=== PATIENT | male | born 2000 | race Hispanic/Latino ===

== ENCOUNTER → 2018-10-18 15:11 | Outpatient (CLI) | payer OTHER, MEDICAID, SELFPAY ==
--- NOTE | 2018-10-18 15:13 | DI.MRI.S_ITS ---
PROCEDURE: MR KNEE LT WO CON INDICATIONS: left knee pain, suspect meniscal injury TECHNIQUE: Noncontrast sagittal PD fast spin echo and T2 fast spin echo with fat saturation, sagittal 3-D FLASH with fat saturation; coronal T1 spin echo and PD fast spin echo with fat saturation, and axial PD fast spin echo with fat saturation through the knee. COMPARISON: None. FINDINGS: Image quality: Excellent. Menisci: The medial and lateral menisci demonstrate normal morphology and internal signal. The meniscal root ligaments appear intact. Cruciate ligaments: The anterior and posterior cruciate ligaments appear intact. Medial structures: The medial collateral ligament appears intact. Medial collateral ligament is thickened with increased internal signal compatible with grade 1 sprain. The posterior oblique ligament, semimembranosus tendon insertions, oblique popliteal ligament, and meniscocapsular junction appear intact. Visualized portions of the pes anserinus tendons appear normal. No abnormal bursal fluid. Lateral structures: The lateral collateral ligament, long and short heads of the biceps femoris tendon appear intact. The popliteus tendon appears normal; the popliteofibular ligament appears intact. The posterosuperior and anteroinferior popliteomeniscal fascicles appear intact. The arcuate and fabellofibular ligaments appear intact, on either side of the lateral inferior geniculate artery. Iliotibial band appears normal. Anterior structures: The quadriceps and patellar tendons appear intact. There is edema extending along the anterior margin of the patella likely representing stress injury. No patellar stress fracture. Patellar alignment is normal. No femoral trochlear dysplasia or ventral trochlear prominence. No edema in the infrapatellar fat pad. Bones and cartilage: No bone marrow contusions or fractures. The cartilage of the medial and lateral femorotibial compartments, as well as the patellofemoral compartment, appears normal in thickness. Joint space: There is physiologic knee joint fluid. No Cedeno's cyst. Normal appearing synovial plicae are incidentally noted. IMPRESSION: 1. Medial collateral ligament grade 1 sprain. 2. No evidence of meniscal tear. Dictated by: Andria Maldonado MD, PhD on 10/18/2018 at 17:33 Approved by: Andria Maldonado MD, PhD on 10/18/2018 at 20:54
== END ==
PROVIDERS: Family Provider Family Medicine; PCP Family Medicine; Visit Provider Registered Nurse
DX: M25.562 Pain in left knee (principal); S83.412A Sprain of medial collateral ligament of left knee, initial encounter
CPT/HCPCS: 73721

== ENCOUNTER → 2019-02-08 11:21 | Outpatient (CLI) | payer OTHER, MEDICAID, SELFPAY ==
[2019-02-08 12:09] LABS: Influenza A and B by PCR Rapid Negative (Negative)
== END ==
PROVIDERS: Family Provider Family Medicine; PCP Family Medicine; Visit Provider Family Medicine
DX: J06.9 Acute upper respiratory infection, unspecified (principal)
CPT/HCPCS: 87400; 87502

== ENCOUNTER 2022-11-15 15:56 | Emergency (ER) | payer OTHER, MEDICAID, SELFPAY | END 2022-11-15 16:40 | disposition left against medical advice (07) | PROVIDERS: Emergency Provider Emergency Medicine; Family Provider Family Medicine; PCP Family Medicine | DX: R10.9 Unspecified abdominal pain (principal) ==

== ENCOUNTER 2023-06-01 12:25 | Emergency (ER) | payer SELFPAY ==
[2023-06-01] VITALS (23 sets, daily range): BP systolic 98–119; BP diastolic 55–83; PULSE 80–98; RESP 13–35; TEMP 37.2; O2SAT 93–99; BMI 35.1
[2023-06-01] MEDS: HYDROMORPHONE 1 MG INJ IV (12:37)
[2023-06-01] MEDS: ONDANSETRON 4 MG/2 ML INJ IV (12:37)
--- NOTE | 2023-06-01 12:38 | DI.CT.S_ITS ---
PROCEDURE: CT KIDNEY URETER BLADDER (KUB) INDICATIONS: RLQ abd pain TECHNIQUE: Axial sections were acquired from the lung bases to the pubic symphysis. Coronal and sagittal reformats were performed. For radiation dose reduction, the following was used: automated exposure control, adjustment of mA and/or kV according to patient size. COMPARISON: [facility], CT, KIDNEY/ URETER/BLADDER, 10/20/2016, 15:35. FINDINGS: Image quality: Diagnostic. Lower Chest: No significant findings. URINARY: Right Kidney: No stones or hydronephrosis. Right Ureter: No hydroureter. Left Kidney: No stones or hydronephrosis. Left Ureter: No hydroureter. Bladder: Normal wall thickness. No stones. ABDOMEN: Liver: No contour-deforming solid mass. Gallbladder: Calculi are present within the gallbladder lumen. Biliary ducts: No biliary dilation. Pancreas: There is moderate fat stranding surrounding the pancreatic body, head, and neck. Small amount of peripancreatic fluid is present. Spleen: Size is within normal limits. Adrenal Glands: No adrenal nodules. Stomach and Bowel: Small hiatal hernia. Normal colonic caliber, without significant wall thickening. Appendix is not seen. No evidence of appendicitis. Peritoneum: No abnormal intraperitoneal fluid. No free air. Ventral Wall: No hernia. Abdominal Nodes: No enlarged retroperitoneal or mesenteric lymph nodes. Vessels: Aorta and inferior vena cava are normal in size. PELVIS: Pelvic Organs: Unremarkable. Pelvic Nodes: Unremarkable. Miscellaneous: No inguinal hernias are seen. Bones: Unremarkable. IMPRESSION: 1. Pancreatitis. 2. No evidence of urinary tract calcification, nor obstruction. Dictated by: Eugene Medley M.D. on 06/01/2023 at 13:02 Approved by: Eugene Medley M.D. on 06/01/2023 at 13:03
--- NOTE | 2023-06-01 13:00 | ED_ITS ---
HPI - General Adult General Chief complaint: Abdominal Pain Stated complaint: Abd pain, vomit Time Seen by Provider: 06/01/23 12:33 Source: patient and EMS Mode of arrival: EMS History of Present Illness HPI narrative: Patient is a 23-year-old male here for evaluation of abdominal discomfort. He states that he has had abdominal discomfort off and on for several months now. He states that normally comes on very strong then he was able to vomit in the in the symptoms improve. Recently he states that it has become more frequent and more intense. He states that last evening he had the onset of the pain. He did throw up and it did improve somewhat but then as the evening went on and this morning symptoms are increasingly worse. No fevers. No urinary symptoms. No bowel movement issues. No prior abdominal surgeries. He did receive ketamine by EMS prior to arrival Related Data Home Medications Medication Instructions Recorded Confirmed No Known Home Medications 02/08/19 02/08/19 Previous Rx's Medication Instructions Recorded ibuprofen 800 mg tablet 800 mg PO TID PRN fever or pain 02/08/19 #15 tabs Allergies Allergy/AdvReac Type Severity Reaction Status Date / Time shellfish derived Allergy Unknown Verified 06/01/23 12:32 [SHELLFISH DERIVED] Review of Systems Constitutional Constitutional: Reports system reviewed and no additional complaints, except as documented Cardiovascular Cardiovascular: Reports system reviewed and no additional complaints, except as documented Respiratory Respiratory: Reports system reviewed and no additional complaints, except as documented Gastrointestinal Gastrointestinal: Reports system reviewed and no additional complaints, except as documented Genitourinary Genitourinary: Reports system reviewed and no additional complaints, except as documented Integumentary/Breasts Skin/Breast: Reports system reviewed and no additional complaints, except as documented Patient History Social History Smoking Status: Never smoker alcohol intake: never substance use type: does not use Smoking Status: Never smoker Substance Use Type: does not use Exam Initial Vital Signs Initial Vital Signs: Vital Signs Temperature 99 F 06/01/23 12:26 Pulse Rate 93 H 06/01/23 12:26 Respiratory Rate 25 H 06/01/23 12:26 Blood Pressure 114/67 06/01/23 12:26 Pulse Oximetry 99 06/01/23 12:26 Oxygen Delivery Method Room Air 06/01/23 12:26 HENFL Head: normal to inspection and normocephalic Resp Effort & Inspection: normal respiratory effort Auscultation: clear to auscultation bilaterally Cardio Rate: regular rate Rhythm: regular rhythm GI Inspection: normal to inspection and non-distended Palpation: soft and tender (Right upper quadrant/right side abdomen) Back/Spine/Pelvis Back: CVA tenderness right Skin General: no rashes or lesions noted Neuro General: patient alert and patient awake Course Orders Ordered: Discontinued Medications Hydromorphone HCl (Hydromorphone 1 Mg Inj) 1 mg IV NOW ONE Stop: 06/01/23 12:35 Last Admin: 06/01/23 12:37 Dose: 1 mg Documented By: SETH Hydromorphone HCl (Hydromorphone 0.5 Mg Inj) 0.5 mg IV Q2HR PRN PRN Reason: Pain, Moderate (4-6) Last Admin: 06/01/23 21:34 Dose: 0.5 mg Documented By: Admin: 06/01/23 19:39 Dose: 0.5 mg Documented By: Admin: 06/01/23 17:12 Dose: 0.5 mg Documented By: TONY Sodium Chloride (Normal Saline 0.9%) 1,000 mls @ 150 mls/hr IV [facility] Last Infusion: 06/01/23 21:43 Dose: 150 mls/hr Documented By: Infusion: 06/01/23 20:45 Dose: 150 mls/hr Documented By: Infusion: 06/01/23 18:28 Dose: 0 mls/hr Documented By: Admin: 06/01/23 15:49 Dose: 150 mls/hr Documented By: MEENA Piperacillin Sod/Tazobactam (Sod 3.375 gm/ Sodium Chloride) 100 mls @ 25 mls/hr IV [facility] Last Infusion: 06/01/23 19:40 Dose: Infused Documented By: Admin: 06/01/23 15:52 Dose: 25 mls/hr Documented By: MEENA Sodium Chloride (Normal Saline 0.9%) 1,000 mls @ 1,000 mls/hr IV BOLUS ONE Stop: 06/01/23 19:04 Last Infusion: 06/01/23 19:44 Dose: Infused Documented By: Admin: 06/01/23 18:23 Dose: 1,000 mls/hr Documented By: MEENA Ketorolac Tromethamine (Ketorolac 30 Mg/Ml Vial) 30 mg IV NOW ONE Stop: 06/01/23 13:00 Last Admin: 06/01/23 13:03 Dose: 30 mg Documented By: SETH Ondansetron HCl (Ondansetron 4 Mg Odt) 4 mg PO NOW PRN PRN Reason: Nausea And Vomiting Last Admin: 06/01/23 21:39 Dose: 4 mg Documented By: ANA Ondansetron HCl (Ondansetron 4 Mg/2 Ml Inj) 4 mg IV NOW PRN PRN Reason: Nausea And Vomiting Last Admin: 06/01/23 12:37 Dose: 4 mg Documented By: SETH Vital Signs Vital signs: Vital Signs - 8 hr 06/01/23 12:26 06/01/23 12:27 06/01/23 12:28 Temperature 99 F Pulse Rate 93 H 96 H Respiratory Rate 25 H 18 Blood Pressure 114/67 114/67 Pulse Oximetry 99 98 Oxygen Delivery Method Room Air Room Air 06/01/23 12:28 06/01/23 12:30 06/01/23 12:30 Temperature Pulse Rate 95 H 98 H Respiratory Rate 18 Blood Pressure 116/68 Pulse Oximetry 98 98 Oxygen Delivery Method 06/01/23 12:55 06/01/23 12:55 06/01/23 13:00 Temperature Pulse Rate 81 Respiratory Rate 28 H Blood Pressure 119/58 L 110/63 Pulse Oximetry 98 Oxygen Delivery Method 06/01/23 13:00 06/01/23 13:30 06/01/23 13:30 Temperature Pulse Rate 83 86 Respiratory Rate 35 H 22 Blood Pressure 103/64 Pulse Oximetry 96 95 Oxygen Delivery Method Room Air 06/01/23 14:00 06/01/23 14:00 06/01/23 14:30 Temperature Pulse Rate 88 88 Respiratory Rate 20 18 Blood Pressure 98/59 L Pulse Oximetry 93 96 Oxygen Delivery Method 06/01/23 14:30 06/01/23 15:51 06/01/23 15:51 Temperature Pulse Rate 89 Respiratory Rate Blood Pressure 108/63 110/66 Pulse Oximetry 98 Oxygen Delivery Method Room Air 06/01/23 15:59 06/01/23 16:00 06/01/23 16:00 Temperature Pulse Rate 87 86 Respiratory Rate Blood Pressure 105/62 Pulse Oximetry 95 95 Oxygen Delivery Method Room Air 06/01/23 16:30 06/01/23 16:31 06/01/23 16:31 Temperature Pulse Rate 87 87 Respiratory Rate 17 18 Blood Pressure 104/83 Pulse Oximetry 96 96 Oxygen Delivery Method Room Air 06/01/23 17:00 06/01/23 17:00 06/01/23 17:30 Temperature Pulse Rate 86 Respiratory Rate 13 Blood Pressure 108/65 111/55 L Pulse Oximetry 95 Oxygen Delivery Method 06/01/23 17:30 Temperature Pulse Rate 85 Respiratory Rate 17 Blood Pressure Pulse Oximetry 95 Oxygen Delivery Method Medical Decision Making Lab Data Lab results reviewed: Yes I reviewed the patient's lab results. 06/01/23 12:53 06/01/23 12:40 Labs: Lab Results 06/01/23 06/01/23 06/01/23 Range/Units 12:40 12:53 18:58 WBC 17.3 H (4.5-11.0) X10^3/uL RBC 5.98 H (4.5-5.9) X10^6/uL Hgb 16.9 (13.5-17.5) g/dL Hct 49.2 (41-53) % MCV 82.1 (80-100) fL MCH 28.3 (26-34) PG MCHC 34.4 (30-36) % RDW 13.6 (11.6-14.8) % Plt Count 312 (150-400) X10^3/uL Neut % (Auto) 81.6 H (50-75) % Lymph % (Auto) 12.0 L (25-40) % Mclennan % (Auto) 5.5 (3-14) % Eos % (Auto) 0.5 L (2-4) % Baso % (Auto) 0.4 (0-2) % Neut # (Auto) 56023 H (2577-2095) /uL Lymph # (Auto) 2100 (3557-8012) /uL Mclennan # (Auto) 900 (0-900) /uL Eos # (Auto) 100 (0-450) /uL Baso # (Auto) 100 (0-100) /uL Sodium 141 (137-145) mmol/L Potassium 3.5 (3.4-5.1) mmol/L Chloride 104 (98-107) mmol/L Carbon Dioxide 23 (22-32) mmol/L BUN 13 (9-20) mg/dL Creatinine 0.79 (0.66-1.25) mg/dL Estimated GFR > 60 (>60) mL/min BUN/Creatinine Ratio 16.5 (6-22) Glucose 130 H (70-100) mg/dL Calcium 10.5 H (8.4-10.2) mg/dL Total Bilirubin 2.5 H (0.2-1.3) mg/dL AST TNP ALT 514 H (<50) IU/L Alkaline Phosphatase 157 H (38-126) U/L Total Protein 8.8 H (6.3-8.2) g/dL Albumin 5.0 (3.5-5.0) g/dL Globulin 3.8 (1.7-4.1) g/dL Albumin/Globulin Ratio 1.3 (1.0-2.8) Lipase 97076 H (23-300) U/L Urine RBC None seen (0-5/HPF) Urine WBC None seen (0-5/HPF) Ur Squamous Epith Cells 0-1 /hpf (0-5/HPF) Urine Bacteria None seen (None) Ur Culture Indicated? Cult not indicated Urine Dip Bedside Urine Glucose Negative Bedside Urine Bilirubin + 1 Bedside Urine Ketone - Negative Urine Specific Mclouth 1.005 Bedside Urine Occult Blood +/- Bedside Urine pH 7.5 Bedside Urine Protein +/- 15 Bedside Urine Urobilinogen - Negative Bedside Urine Nitrite - Negative Bedside Urine Leukocytes +/- 15 Esterase Point of care testing: Urine Dip Bedside Urine Glucose Negative Bedside Urine Bilirubin + 1 Bedside Urine Ketone - Negative Urine Specific Mclouth 1.005 Bedside Urine Occult Blood +/- Bedside Urine pH 7.5 Bedside Urine Protein +/- 15 Bedside Urine Urobilinogen - Negative Bedside Urine Nitrite - Negative Bedside Urine Leukocytes +/- [address] scan - abdomen/pelvis: Radiologist's Impression: PROCEDURE: CT KIDNEY URETER BLADDER (KUB) INDICATIONS: RLQ abd pain TECHNIQUE: Axial sections were acquired from the lung bases to the pubic symphysis. Coronal and sagittal reformats were performed. For radiation dose reduction, the following was used: automated exposure control, adjustment of mA and/or kV according to patient size. COMPARISON: [facility], CT, KIDNEY/ URETER/BLADDER, 10/20/2016, 15:35. FINDINGS: Image quality: Diagnostic. Lower Chest: No significant findings. URINARY: Right Kidney: No stones or hydronephrosis. Right Ureter: No hydroureter. Left Kidney: No stones or hydronephrosis. Left Ureter: No hydroureter. Bladder: Normal wall thickness. No stones. ABDOMEN: Liver: No contour-deforming solid mass. Gallbladder: Calculi are present within the gallbladder lumen. Biliary ducts: No biliary dilation. Pancreas: There is moderate fat stranding surrounding the pancreatic body, head, and neck. Small amount of peripancreatic fluid is present. Spleen: Size is within normal limits. Adrenal Glands: No adrenal nodules. Stomach and Bowel: Small hiatal hernia. Normal colonic caliber, without significant wall thickening. Appendix is not seen. No evidence of appendicitis. Peritoneum: No abnormal intraperitoneal fluid. No free air. Ventral Wall: No hernia. Abdominal Nodes: No enlarged retroperitoneal or mesenteric lymph nodes. Vessels: Aorta and inferior vena cava are normal in size. PELVIS: Pelvic Organs: Unremarkable. Pelvic Nodes: Unremarkable. Miscellaneous: No inguinal hernias are seen. Bones: Unremarkable. IMPRESSION: 1. Pancreatitis. 2. No evidence of urinary tract calcification, nor obstruction. MRCP: Radiologist's Impression: PROCEDURE: MR ABDOMEN WO/W CON INDICATIONS: Pancreatitis with elevated bilirubin eval for CBD stone TECHNIQUE: Coronal HASTE, axial 2D FLASH in- and [id number]; axial breath-hold T2 FSE with fat saturation from the hepatic dome to the iliac crests. Oblique coronal thin- slice and radial thick slab HASTE through the biliary system. Dynamic axial VIBE during administration of contrast. Post-contrast coronal VIBE or 2D FLASH with fat saturation from the hepatic dome to the iliac crests. Optional diffusion weighted imaging and ADC may be performed. COMPARISON: [facility], CT, CT KIDNEY URETER BLADDER (KUB), 06/01/2023, 12:49. FINDINGS: Image quality: Degraded by motion artifact. Gallbladder: 52 mm calculus within the gallbladder lumen is present. Biliary ducts: No biliary dilation. There are 2 possible small (2-3 mm diameter) calculi within the common bile duct. This could also represent artifact secondary to motion. Pancreas: No ductal dilation. Moderate edema within the pancreas. Small amount of peripancreatic fluid. OTHER: Lung bases: Unremarkable. Liver: No solid mass. Spleen: Size is within normal limits. Adrenal Glands: No adrenal nodules. Kidneys and Ureters: No hydronephrosis. No solid mass. No complex renal cystic lesion which requires follow up. Stomach and Bowel: Normal colonic caliber, without significant wall thickening. Peritoneum: Small amount of ascites, predominantly within the right anterior pararenal space. No free air. Ventral Wall: No hernia. Abdominal Nodes: No retroperitoneal or mesenteric adenopathy by size criteria. Vessels: Aorta and inferior vena cava are normal in size. Bones: No aggressive osseous abnormality. IMPRESSION: 1. Artifact versus small calculi within the common bile duct. ERCP is recommended for further assessment. 2. Pancreatitis. 3. Cholelithiasis. US - abdomen: Radiologist's Impression: PROCEDURE: US ABDOMEN LIMITED INDICATIONS: RUQ US eval for GB pathology TECHNIQUE: Real-time focused scanning was performed of the abdomen, with image documentation. COMPARISON: None. FINDINGS: Liver is within normal limits. Nonmobile calculus within the gallbladder lumen is present. No gallbladder wall thickening. No biliary ductal dilatation. IMPRESSION: Cholelithiasis. No evidence of cholecystitis. [facility] Narrative Medical decision making narrative: Initially upon arrival was concerned about renal colic given the location of the patient's symptoms and what he described. Was given pain medication. CT scan was more consistent with acute pancreatitis. No other acute abdominal pathology. A right upper quadrant ultrasound was then ordered. It shows cholelithiasis without signs of acute cholecystitis. It does have leukocytosis. Significantly elevated lipase. Elevation in LFTs and alk-phos. MRCP shows findings that are concerning for common bile duct stone. Patient was started on antibiotics. Made NPO. Fluids administered. Pain medication administered. Patient does require transfer for ERCP. Contacted multiple places to include [facility], [facility] there was no bed availability. I did discuss the case with GI at [facility]. They do have the ability to do ERCP however there currently isn't bed availability. Patient is updated. Care turned over to Dr. Wang to continue to evaluate until disposition. Discharge Plan Departure Patient Disposition: [facility] Clinical Impression: Acute gallstone pancreatitis Prescriptions: No Action No Known Home Medications ibuprofen 800 mg tablet 800 mg PO TID PRN (Reason: fever or pain) Qty: 15 0RF Referrals: Shirin Murphy MD [Primary Care Provider] -
[2023-06-01 13:01] LABS: Add Manual Diff / Slide Review NO; Basophils Absolute Auto 100 /uL (0-100); Basophils Percent Auto 0.4 % (0-2); Eosinophils Absolute Auto 100 /uL (0-450); Eosinophils Percent Auto 0.5 % (2-4); Hematocrit 49.2 % (41-53); Hemoglobin 16.9 g/dL (13.5-17.5); Lymphocytes Absolute Auto 2100 /uL (1100-4500); Mean Corpuscular HGB Conc 34.4 % (30-36); Mean Corpuscular Hemoglobin 28.3 PG (26-34); Mean Corpuscular Volume 82.1 fL (80-100); Monocytes Absolute Auto 900 /uL (0-900); Monocytes Percent Auto 5.5 % (3-14); Neutrophils Absolute Auto 14100 /uL (1500-7000); Neutrophils Percent Auto 81.6 % (50-75); Platelet Count 312 X10^3/uL (150-400); Red Blood Cell Count 5.98 X10^6/uL (4.5-5.9); Red Cell Distribution Width 13.6 % (11.6-14.8); White Blood Cell Count 17.3 X10^3/uL (4.5-11.0)
[2023-06-01] MEDS: KETOROLAC 30 MG/ML VIAL IV (13:03)
--- NOTE | 2023-06-01 13:14 | DI.US.S_ITS ---
PROCEDURE: US ABDOMEN LIMITED INDICATIONS: RUQ US eval for GB pathology TECHNIQUE: Real-time focused scanning was performed of the abdomen, with image documentation. COMPARISON: None. FINDINGS: Liver is within normal limits. Nonmobile calculus within the gallbladder lumen is present. No gallbladder wall thickening. No biliary ductal dilatation. IMPRESSION: Cholelithiasis. No evidence of cholecystitis. Dictated by: Eugene Medley M.D. on 06/01/2023 at 13:51 Approved by: Eugene Medley M.D. on 06/01/2023 at 13:53
[2023-06-01 13:22] LABS: Alanine Aminotransferase 514 IU/L (<50); Albumin Globulin Ratio 1.3 (1.0-2.8); Alkaline Phosphatase 157 U/L (38-126); BUN Creatinine Ratio 16.5 (6-22); Bilirubin Total 2.5 mg/dL (0.2-1.3); Blood Urea Nitrogen 13 mg/dL (9-20); Calcium 10.5 mg/dL (8.4-10.2); Carbon Dioxide 23 mmol/L (22-32); Chloride 104 mmol/L (98-107); Estimated Glomerular Filt Rate > 60 mL/min (>60); Globulin 3.8 g/dL (1.7-4.1); Glucose 130 mg/dL (70-100); Potassium 3.5 mmol/L (3.4-5.1); Sodium 141 mmol/L (137-145); Total Protein 8.8 g/dL (6.3-8.2)
[2023-06-01 14:04] LABS: Lipase 41576 U/L (23-300)
--- NOTE | 2023-06-01 14:27 | DI.MRI.S_ITS ---
PROCEDURE: MR ABDOMEN WO/W CON INDICATIONS: Pancreatitis with elevated bilirubin eval for CBD stone TECHNIQUE: Coronal HASTE, axial 2D FLASH in- and [id number]; axial breath-hold T2 FSE with fat saturation from the hepatic dome to the iliac crests. Oblique coronal thin-slice and radial thick slab HASTE through the biliary system. Dynamic axial VIBE during administration of contrast. Post-contrast coronal VIBE or 2D FLASH with fat saturation from the hepatic dome to the iliac crests. Optional diffusion weighted imaging and ADC may be performed. COMPARISON: [facility], CT, CT KIDNEY URETER BLADDER (KUB), 06/01/2023, 12:49. FINDINGS: Image quality: Degraded by motion artifact. Gallbladder: 52 mm calculus within the gallbladder lumen is present. Biliary ducts: No biliary dilation. There are 2 possible small (2-3 mm diameter) calculi within the common bile duct. This could also represent artifact secondary to motion. Pancreas: No ductal dilation. Moderate edema within the pancreas. Small amount of peripancreatic fluid. OTHER: Lung bases: Unremarkable. Liver: No solid mass. Spleen: Size is within normal limits. Adrenal Glands: No adrenal nodules. Kidneys and Ureters: No hydronephrosis. No solid mass. No complex renal cystic lesion which requires follow up. Stomach and Bowel: Normal colonic caliber, without significant wall thickening. Peritoneum: Small amount of ascites, predominantly within the right anterior pararenal space. No free air. Ventral Wall: No hernia. Abdominal Nodes: No retroperitoneal or mesenteric adenopathy by size criteria. Vessels: Aorta and inferior vena cava are normal in size. Bones: No aggressive osseous abnormality. IMPRESSION: 1. Artifact versus small calculi within the common bile duct. ERCP is recommended for further assessment. 2. Pancreatitis. 3. Cholelithiasis. Dictated by: Eugene Medley M.D. on 06/01/2023 at 15:24 Approved by: Eugene Medley M.D. on 06/01/2023 at 15:40
--- NOTE | 2023-06-01 15:39 | PC.NURSE ---
pt left for MRA , antibiotic and fluids on hold until his return. Dr. Boswell aware and agreed.
[2023-06-01] MEDS: SODIUM CHLORIDE 0.9% 1,000 ML 150 ML IV (15:49)
[2023-06-01] MEDS: PIPERACILLIN/TAZO 3.375 GM in SODIUM CHLORIDE 0.9% 100 ML IV (15:52)
--- NOTE | 2023-06-01 16:06 | PC.NURSE ---
Patient back in bed from MRI. Fluids and antibiotics infusing, see MAR. Pt states his pain is more tolerable at a 5/10 in his abdomen and radiates to his lower back, denying nausea. Pt asks if I see his phone anywhere. There is no cell phone in patient's room. Pt states it's probably with my mom then.. Pt denies further needs at this time, call light in reach.
--- NOTE | 2023-06-01 17:11 | PC.NURSE ---
Hospital Calls for Patient Transfer [id number]-[facility], spoke to Sreekanth, patient on waitlist 161-[facility], spoke to Yazmin, patient on waitlist 162-[facility], spoke to Carmela, patient is not on waitlist, over capacity, told to call back in a 4 hours [id number]-[facility], spoke to Rohan, patient is not on waitlist, over capacity 165-[facility], spoke to Racheal, patient on waitlist, did not want facesheet faxed yet, very busy and boarding 171-[facility], spoke to Hien, patient on waitlist
[2023-06-01] MEDS: HYDROMORPHONE 0.5 MG INJ IV ×3 (17:12→21:34)
[2023-06-01] MEDS: SODIUM CHLORIDE 0.9% 1,000 ML 1000 ML IV (18:23)
--- NOTE | 2023-06-01 19:57 | PC.NURSE ---
Addendum entered by Milena Camarillo CNA 06/01/23 20:06: FELICITA note: According to Dr. Wang patient got accepted by Dr. Germán Kirkpatrick. Waiting for a call back from them to arrange transport. Spoke to Merary at [facility], told her about Dr. Dunlap. Original Note: FELICITA note: [address] [facility] for possible transfer. Waiting for a call back
[2023-06-01 20:08] LABS: Bacteria Urine None Seen; Culture Indicated Urine Cult Not Indicated; RBC Urine None Seen (0-5/HPF); Squamous Epithelial Cell Urine 0-1 /HPF (0-5/HPF); WBC Urine None Seen (0-5/HPF)
[2023-06-01] MEDS: ONDANSETRON 4 MG ODT PO (21:39)
[2023-06-02 15:04] LABS: HEMOLYSIS < 15 (0-50)
[2023-06-02 15:07] LABS: Aspartate Aminotransferase 400 IU/L (17-59)
== END 2023-06-01 21:50 | disposition short-term general hospital (02) ==
PROVIDERS: Emergency Medicine; Emergency Provider Emergency Medicine; Family Provider Family Medicine; PCP Family Medicine
DX: K85.10 Biliary acute pancreatitis without necrosis or infection (principal)
CPT/HCPCS: 36415; 74176; 74183; 76705; 80053; 81003; 81015; 83690; 85025; 96365; 96366; 96375; 96376; 99285; A9579; J1170; J1885; J2405; J2543

== ENCOUNTER 2023-07-18 09:46 | Observation (INO) | payer OTHER, SELFPAY ==
[2023-07-18] VITALS (12 sets, daily range): BP systolic 100–122; BP diastolic 50–71; PULSE 73–107; RESP 14–18; TEMP 37–37.1; O2SAT 95–99; BMI 33.4
[2023-07-18 10:10] LABS: Add Manual Diff / Slide Review NO; Basophils Absolute Auto 0 /uL (0-100); Basophils Percent Auto 0.3 % (0-2); Eosinophils Absolute Auto 0 /uL (0-450); Eosinophils Percent Auto 0.2 % (2-4); Hemoglobin 15.7 g/dL (13.5-17.5); Lymphocytes Absolute Auto 1000 /uL (1100-4500); Lymphocytes Percent Auto 8.3 % (25-40); Mean Corpuscular HGB Conc 34.8 % (30-36); Mean Corpuscular Hemoglobin 29.1 PG (26-34); Mean Corpuscular Volume 83.5 fL (80-100); Monocytes Absolute Auto 700 /uL (0-900); Monocytes Percent Auto 5.7 % (3-14); Neutrophils Absolute Auto 10100 /uL (1500-7000); Neutrophils Percent Auto 85.5 % (50-75); Platelet Count 299 X10^3/uL (150-400); Red Blood Cell Count 5.39 X10^6/uL (4.5-5.9); Red Cell Distribution Width 13.8 % (11.6-14.8); White Blood Cell Count 11.8 X10^3/uL (4.5-11.0)
[2023-07-18 10:30] LABS: Alanine Aminotransferase 37 IU/L (<50); Albumin 4.8 g/dL (3.5-5.0); Albumin Globulin Ratio 1.3 (1.0-2.8); Alkaline Phosphatase 92 U/L (38-126); Aspartate Aminotransferase 22 IU/L (17-59); BUN Creatinine Ratio 19.6 (6-22); Bilirubin Total 1.1 mg/dL (0.2-1.3); Blood Urea Nitrogen 11 mg/dL (9-20); Calcium 9.7 mg/dL (8.4-10.2); Carbon Dioxide 22 mmol/L (22-32); Chloride 102 mmol/L (98-107); Estimated Glomerular Filt Rate > 60 mL/min (>60); Globulin 3.7 g/dL (1.7-4.1); Glucose 111 mg/dL (70-100); HEMOLYSIS < 15 (0-50); Lipase 30 U/L (23-300); Potassium 3.7 mmol/L (3.4-5.1); Sodium 139 mmol/L (137-145); Total Protein 8.5 g/dL (6.3-8.2)
--- NOTE | 2023-07-18 10:51 | ED_ITS ---
HPI - Abdominal Pain General Chief Complaint: Abdominal Pain Stated Complaint: sent from [facility] lower abd pain rt side Time Seen by Provider: 07/18/23 10:14 Source: patient Mode of arrival: Ambulatory Limitations: no limitations History of Present Illness HPI narrative: 23-year-old male with recent gallstone pancreatitis and removal of his gallbladder at the beginning of May at [facility]. Patient states yesterday he had Overton's he has been avoiding fatty foods but thought he could try it he started to have pain in his lower abdomen and had nausea and vomiting yesterday and overnight. He states he has not had a bowel movement since yesterday but was a very small amount of formed stool. States he is passed flatus but only a few times. States pain has pretty much lower abdomen and a little bit in his back but more midline. Patient states no fevers. Nausea and vomiting is improved. He states pain is not the same location as his pancreatitis. Patient states no dysuria, urgency or frequency or hematuria. Patient states no black or bloody stools. Denies any other medical issues. He is currently on oral antibiotic for an injury to his. Patient states no other surgeries besides having his gallbladder removed. Denies regular tobacco,, alcohol or recreational drugs. Related Data Previous Rx's Medication Instructions Recorded ibuprofen 800 mg tablet 800 mg PO TID PRN fever or pain 02/08/19 #15 tabs cephalexin 500 mg capsule 500 mg PO BID 7 days #14 caps 07/16/23 Allergies Allergy/AdvReac Type Severity Reaction Status Date / Time shellfish derived Allergy Unknown Verified 07/18/23 10:00 [SHELLFISH DERIVED] Review of Systems Review of Systems ROS Unobtainable: All systems reviewed & are unremarkable except as noted in HPI and below Patient History Social History Smoking Status: Never smoker alcohol intake: never substance use type: does not use Smoking Status: Never smoker alcohol intake frequency: holidays/special occasions only Substance Use Type: does not use Exam Narrative Exam Narrative: GENERAL: Alert and oriented x three, male in moderate distress. HEENT: Head normocephalic, atraumatic, EOMI, pupils reactive, face symmetric, moist mucous membranes NECK: Supple, full range of motion CARDIOVASCULAR: Regular rate and rhythm without murmurs, rubs or gallops. RESPIRATORY: Breath sounds equal bilaterally, no wheezes rales or rhonchi. ABDOMEN: Soft, patient is mildly tender suprapubically but otherwise nontender. Normoactive bowel sounds all 4 quadrants. No guarding or rebound, rigidity, no mass, no bruit or pulsatile mass. : No CVA tenderness EXTREMITIES: Normal range of motion, no clubbing or edema. Neurovascularly intact NEUROLOGICAL: Cranial nerves II through XII grossly intact. Moving all extremities SKIN: Warm, dry, no petechiae, no rashes or lesions. Initial Vital Signs Initial Vital Signs: Vital Signs Pulse Rate 99 H 07/18/23 09:53 Pulse Oximetry 95 07/18/23 09:53 Course Orders Ordered: ED Orders 07/18/23 10:03 Complete Blood Count AUTO DIFF Stat Comprehensive Metabolic Panel Stat Lipase Stat 07/18/23 10:38 Urine Microscopic Stat 07/18/23 11:12 CT abdomen pelvis w con Stat Ondansetron HCl (Ondansetron 4 Mg/2 Ml Inj) 4 mg IV NOW PRN PRN Reason: Nausea And Vomiting Discontinued Medications Sodium Chloride (Normal Saline 0.9%) 1,000 mls @ 1,000 mls/hr IV BOLUS ONE Stop: 07/18/23 11:55 Last Infusion: 07/18/23 12:55 Dose: Infused Documented By: Admin: 07/18/23 11:22 Dose: 1,000 mls/hr Documented By: TIARRA Piperacillin Sod/Tazobactam (Sod 4.5 gm/ Sodium Chloride) 100 mls @ 200 mls/hr IV NOW ONE Stop: 07/18/23 11:56 Last Infusion: 07/18/23 12:44 Dose: Infused Documented By: Admin: 07/18/23 12:05 Dose: 200 mls/hr Documented By: TIARRA Ketorolac Tromethamine (Ketorolac 30 Mg/Ml Vial) 15 mg IV NOW ONE Stop: 07/18/23 10:57 Last Admin: 07/18/23 11:20 Dose: 15 mg Documented By: TIARRA Vital Signs Vital signs: Vital Signs - 8 hr 07/18/23 09:53 07/18/23 09:54 07/18/23 09:54 Temperature Pulse Rate 99 H 99 H Respiratory Rate Blood Pressure 106/59 L Pulse Oximetry 95 95 Oxygen Delivery Method 07/18/23 10:00 07/18/23 10:00 07/18/23 10:00 Temperature 98.7 F Pulse Rate 95 H 92 H Respiratory Rate 14 Blood Pressure 106/59 L 121/69 Pulse Oximetry 97 96 Oxygen Delivery Method Room Air 07/18/23 10:30 07/18/23 10:31 07/18/23 10:31 Temperature Pulse Rate 94 H 93 H Respiratory Rate Blood Pressure 117/64 Pulse Oximetry 96 96 Oxygen Delivery Method 07/18/23 11:00 07/18/23 11:00 07/18/23 11:12 Temperature Pulse Rate 85 107 H Respiratory Rate Blood Pressure 119/71 Pulse Oximetry 95 97 Oxygen Delivery Method 07/18/23 11:12 07/18/23 11:30 07/18/23 11:30 Temperature Pulse Rate 79 Respiratory Rate Blood Pressure 122/61 102/55 L Pulse Oximetry 97 Oxygen Delivery Method 07/18/23 12:00 07/18/23 12:00 07/18/23 12:30 Temperature Pulse Rate 99 H 83 Respiratory Rate Blood Pressure 112/59 L Pulse Oximetry 99 97 Oxygen Delivery Method 07/18/23 12:30 Temperature Pulse Rate Respiratory Rate Blood Pressure 111/57 L Pulse Oximetry Oxygen Delivery Method MDM - Abdominal Pain Lab Data 07/18/23 10:03 07/18/23 10:03 Labs: Lab Results 07/18/23 07/18/23 Range/Units 10:03 10:38 WBC 11.8 H (4.5-11.0) X10^3/uL RBC 5.39 (4.5-5.9) X10^6/uL Hgb 15.7 (13.5-17.5) g/dL Hct 45.0 (41-53) % MCV 83.5 (80-100) fL MCH 29.1 (26-34) PG MCHC 34.8 (30-36) % RDW 13.8 (11.6-14.8) % Plt Count 299 (150-400) X10^3/uL Neut % (Auto) 85.5 H (50-75) % Lymph % (Auto) 8.3 L (25-40) % [place] % (Auto) 5.7 (3-14) % Eos % (Auto) 0.2 L (2-4) % Baso % (Auto) 0.3 (0-2) % Neut # (Auto) 62950 H (1338-1757) /uL Lymph # (Auto) 1000 L (2354-8473) /uL [place] # (Auto) 700 (0-900) /uL Eos # (Auto) 0 (0-450) /uL Baso # (Auto) 0 (0-100) /uL Sodium 139 (137-145) mmol/L Potassium 3.7 (3.4-5.1) mmol/L Chloride 102 (98-107) mmol/L Carbon Dioxide 22 (22-32) mmol/L BUN 11 (9-20) mg/dL Creatinine 0.56 L (0.66-1.25) mg/dL Estimated GFR > 60 (>60) mL/min BUN/Creatinine Ratio 19.6 (6-22) Glucose 111 H (70-100) mg/dL Calcium 9.7 (8.4-10.2) mg/dL Total Bilirubin 1.1 (0.2-1.3) mg/dL AST 22 (17-59) IU/L ALT 37 (<50) IU/L Alkaline Phosphatase 92 (38-126) U/L Total Protein 8.5 H (6.3-8.2) g/dL Albumin 4.8 (3.5-5.0) g/dL Globulin 3.7 (1.7-4.1) g/dL Albumin/Globulin Ratio 1.3 (1.0-2.8) Lipase 30 (23-300) U/L Urine RBC 1-5/hpf (0-5/HPF) Urine WBC 1-5/hpf (0-5/HPF) Ur Squamous Epith Cells 0-1 /hpf (0-5/HPF) Urine Bacteria None seen (None) Urine Mucus 1+ H (Negative) Ur Culture Indicated? Cult not indicated Vol Urine Centrifuged 10ml (spun) Point of care testing: Urine Dip Bedside Urine Glucose Negative Bedside Urine Bilirubin - Negative Bedside Urine Ketone - Negative Urine Specific [place] 1.015 Bedside Urine Occult Blood ++ Bedside Urine pH 6.5 Bedside Urine Protein + 30 Bedside Urine Urobilinogen - Negative Bedside Urine Nitrite - Negative Bedside Urine Leukocytes - Negative Esterase Imaging Data CT scan - abdomen/pelvis: Radiologist's Impression: Close Abdomen/Pelvis CT (Signed) Kaiser Garsia - 07/18/23 Launch?Image [address] [address] [address] Scan Report Signed Patient: Negro Francisco MR#: [id number] : 2000 Acct:[id number] Age/Sex: 23 / M Date of Service: 07/18/23 Loc: ED Accession Number: [id number] Procedure: CT abdomen pelvis w con Ordering Provider: Era Rodriguez D.O. PROCEDURE: CT ABDOMEN PELVIS W CON INDICATIONS: lower abd pain x1 day, cholecystectom simon gallstones/pancrea TECHNIQUE: After the administration of intravenous contrast, axial sections acquired from the lung bases to the pubic symphysis. Coronal and sagittal reformats were performed. For radiation dose reduction, the following was used: automated exposure control, adjustment of mA and/or kV according to patient size. COMPARISON: [facility], , MR ABDOMEN WO/W CON, 06/01/2023, 14:47. FINDINGS: Image quality: Diagnostic. Lower Chest: No significant findings. ABDOMEN: Liver: No solid mass. Gallbladder: Surgically absent. Biliary ducts: No biliary dilation. Pancreas: No ductal dilation. Slightly higher than fluid attenuation extending along the superior aspect of the pancreas from the head to the tail with a more focal collection at the pancreatic tail measuring 2.5 x 2.3 cm. Spleen: Size is within normal limits. Adrenal Glands: No adrenal nodules. Kidneys and Ureters: No hydronephrosis. No solid mass. No complex renal cystic lesion which requires follow up. Stomach and Bowel: Normal colonic caliber, without significant wall thickening. The appendix is dilated measuring 1.2 cm with wall thickening and surrounding inflammatory changes. There is no adjacent organized fluid collection or extraluminal gas. Peritoneum: No abnormal intraperitoneal fluid. No free air. Ventral Wall: No significant ventral hernia. Abdominal Nodes: No retroperitoneal or mesenteric adenopathy by size criteria. Vessels: Aorta and inferior vena cava are normal in size. PELVIS: Pelvic Organs: Unremarkable. Bladder: No bladder wall thickening, accounting for underdistention. Pelvic Nodes: No enlarged lymph nodes. Miscellaneous: No inguinal hernias are seen. Bones: No aggressive osseous abnormality. IMPRESSION: 1. Findings consistent with acute uncomplicated appendicitis. 2. Slightly higher than fluid attenuation along the superior aspect of the pancreas with a more focal collection near the tail, findings may represent pancreatic pseudocyst. 3. No significant peripancreatic inflammation is seen. Dictated by: Kaiser Garsia M.D. on 07/18/2023 at 11:20 Approved by: Kaiser Garsia M.D. on 07/18/2023 at 11:30 [facility] Narrative Medical decision making narrative: 23-year-old male approximately 6 weeks status post cholecystectomy for gallstones and pancreatitis and had MR I that showed artifact versus small calculi in the common bile duct when here on 06/01/2023. Patient states pancreatitis was believed to be secondary to his gallstones. He states he had his 1st significantly fatty meal yesterday started having nausea vomiting and lower abdominal pain. Nausea vomiting has ceased but he has still had quite a bit of pain little bit into his back as well. Has had some decrease in stool output had a bowel movement yesterday but very small and has had flatus but only 2 times reportedly. Denies urinary symptoms. Plan for labs and CT abdomen pelvis to rule out obstructive process versus appendicitis versus other. Labs show white count of 11.8 normal hemoglobin, normal platelets, leftward shift. Electrolytes are overall appropriate creatinine 0.56 glucose is 111, LFTs are normal, patient's last visit on 06/01/2023 showed a total bilirubin of 2.5 and a lipase of 41,000 which day as bilirubin of 1.1 and a lipase 30. Point of care urine 2+ blood, 30+ protein, 1-5 RBC, 1-5 WBCs 0-[address] abdomen shows acute uncomplicated appendicitis. There is also slightly higher fluid attenuation 2 [place] aspect of pancreas with more focal collection near the tail might represent pancreatic pseudocyst no significant peripancreatic inflammation seen. Patient's pain is all in his lower abdomen so suspect his main issue today is appendicitis. Discussed findings from his CT to follow-up. Patient covered with dose of IV antibiotic Consult with Dr. Ross, general surgery accepts for observation. Potentially today versus tomorrow for OR. Plan to keep NPO at this time. Discharge Plan Departure Patient Disposition: Admitted as Observation Clinical Impression: Acute appendicitis Admit Date/Time: 07/18/23 13:02 Admit Provider: Aguilar Ross
[2023-07-18 11:01] LABS: Bacteria Urine None Seen; Culture Indicated Urine Cult Not Indicated; Mucus Urine 1+ (Negative); RBC Urine 1-5/HPF (0-5/HPF); Squamous Epithelial Cell Urine 0-1 /HPF (0-5/HPF); Urine Volume 10mL (spun); WBC Urine 1-5/HPF (0-5/HPF)
--- NOTE | 2023-07-18 11:12 | DI.CT.S_ITS ---
PROCEDURE: CT ABDOMEN PELVIS W CON INDICATIONS: lower abd pain x1 day, cholecystectom simon gallstones/pancrea TECHNIQUE: After the administration of intravenous contrast, axial sections acquired from the lung bases to the pubic symphysis. Coronal and sagittal reformats were performed. For radiation dose reduction, the following was used: automated exposure control, adjustment of mA and/or kV according to patient size. COMPARISON: [facility], MR, MR ABDOMEN WO/W CON, 06/01/2023, 14:47. FINDINGS: Image quality: Diagnostic. Lower Chest: No significant findings. ABDOMEN: Liver: No solid mass. Gallbladder: Surgically absent. Biliary ducts: No biliary dilation. Pancreas: No ductal dilation. Slightly higher than fluid attenuation extending along the superior aspect of the pancreas from the head to the tail with a more focal collection at the pancreatic tail measuring 2.5 x 2.3 cm. Spleen: Size is within normal limits. Adrenal Glands: No adrenal nodules. Kidneys and Ureters: No hydronephrosis. No solid mass. No complex renal cystic lesion which requires follow up. Stomach and Bowel: Normal colonic caliber, without significant wall thickening. The appendix is dilated measuring 1.2 cm with wall thickening and surrounding inflammatory changes. There is no adjacent organized fluid collection or extraluminal gas. Peritoneum: No abnormal intraperitoneal fluid. No free air. Ventral Wall: No significant ventral hernia. Abdominal Nodes: No retroperitoneal or mesenteric adenopathy by size criteria. Vessels: Aorta and inferior vena cava are normal in size. PELVIS: Pelvic Organs: Unremarkable. Bladder: No bladder wall thickening, accounting for underdistention. Pelvic Nodes: No enlarged lymph nodes. Miscellaneous: No inguinal hernias are seen. Bones: No aggressive osseous abnormality. IMPRESSION: 1. Findings consistent with acute uncomplicated appendicitis. 2. Slightly higher than fluid attenuation along the superior aspect of the pancreas with a more focal collection near the tail, findings may represent pancreatic pseudocyst. 3. No significant peripancreatic inflammation is seen. Dictated by: Kaiser Garsia M.D. on 07/18/2023 at 11:20 Approved by: Kaiser Garsia M.D. on 07/18/2023 at 11:30
[2023-07-18] MEDS: KETOROLAC 30 MG/ML VIAL 15 MG IV (11:20)
[2023-07-18] MEDS: SODIUM CHLORIDE 0.9% 1,000 ML 1000 ML IV (11:22)
[2023-07-18] MEDS: PIPERACILLIN/TAZO 4.5 GM in SODIUM CHLORIDE 0.9% 100 ML IV (12:05)
[2023-07-18] MEDS: LACTATED RINGERS 1,000 ML 100 ML IV (14:50)
[2023-07-18] MEDS: HYDROMORPHONE 0.5 MG INJ IV (15:52)
--- NOTE | 2023-07-18 16:44 | PC.ADMIT ---
[address] Admission Note: The patient,Negro Francisco,23 y/o, was given written information regarding hospital policies, unit procedures and contact persons. Patient's smoking status: Never smoker. Vital Signs - 8 hr 07/18/23 09:53 07/18/23 09:54 07/18/23 09:54 Temperature Pulse Rate 99 H 99 H Respiratory Rate Blood Pressure 106/59 L Pulse Oximetry 95 95 Oxygen Delivery Method Oxygen Flow Rate 07/18/23 10:00 07/18/23 10:00 07/18/23 10:00 Temperature 98.7 F Pulse Rate 95 H 92 H Respiratory Rate 14 Blood Pressure 106/59 L 121/69 Pulse Oximetry 97 96 Oxygen Delivery Method Room Air Oxygen Flow Rate 07/18/23 10:30 07/18/23 10:31 07/18/23 10:31 Temperature Pulse Rate 94 H 93 H Respiratory Rate Blood Pressure 117/64 Pulse Oximetry 96 96 Oxygen Delivery Method Oxygen Flow Rate 07/18/23 11:00 07/18/23 11:00 07/18/23 11:12 Temperature Pulse Rate 85 107 H Respiratory Rate Blood Pressure 119/71 Pulse Oximetry 95 97 Oxygen Delivery Method Oxygen Flow Rate 07/18/23 11:12 07/18/23 11:30 07/18/23 11:30 Temperature Pulse Rate 79 Respiratory Rate Blood Pressure 122/61 102/55 L Pulse Oximetry 97 Oxygen Delivery Method Oxygen Flow Rate 07/18/23 12:00 07/18/23 12:00 07/18/23 12:30 Temperature Pulse Rate 99 H 83 Respiratory Rate Blood Pressure 112/59 L Pulse Oximetry 99 97 Oxygen Delivery Method Oxygen Flow Rate 07/18/23 12:30 07/18/23 15:00 Temperature 98.6 F Pulse Rate 85 Respiratory Rate 17 Blood Pressure 111/57 L 113/65 Pulse Oximetry 98 Oxygen Delivery Method Oxygen Flow Rate 0 Pt arrived via wheelchair from ED, connected to monitoring equipment, oriented to room and call light system, LR infusing as ordered, Surgeon contacted for orders, will come to see pt when able, currently no orders, no further needs at this time.
--- NOTE | 2023-07-18 16:54 | P.HP_ITS ---
History of Present Illness History of Present Illness Date Patient Seen: 07/18/23 Time Patient Seen: 16:55 Chief complaint: sent from [facility] lower abd pain rt side Narrative: Negro is a 23-year-old man who presented to the emergency room today complaining of about 24 hours of abdominal pain localizing to the right lower quadrant. He vomited at 4:00 a.m. today. His last full meal was last night. A CT scan showed acute uncomplicated appendicitis. He had a laparoscopic cholecystectomy for gallstone pancreatitis about 1 month ago. [facility] Social History household members: family Smoking Status: Never smoker alcohol intake: never substance use type: does not use Meds Home Medications and Allergies Home Medications Medication Instructions Recorded Confirmed Type ibuprofen 800 mg tablet 800 mg PO TID PRN fever or pain 02/08/19 07/18/23 Rx #15 tabs cephalexin 500 mg capsule 500 mg PO BID 7 days #14 caps 07/16/23 07/18/23 Rx Allergies Allergy/AdvReac Type Severity Reaction Status Date / Time shellfish derived Allergy Unknown Verified 07/18/23 10:00 [SHELLFISH DERIVED] Exam Vital Signs (past 8 hours): - 07/18/23 09:53 07/18/23 09:54 07/18/23 09:54 Temperature Pulse Rate 99 H 99 H Respiratory Rate Blood Pressure 106/59 L Pulse Oximetry 95 95 Oxygen Delivery Method Oxygen Flow Rate 07/18/23 10:00 07/18/23 10:00 07/18/23 10:00 Temperature 98.7 F Pulse Rate 95 H 92 H Respiratory Rate 14 Blood Pressure 106/59 L 121/69 Pulse Oximetry 97 96 Oxygen Delivery Method Room Air Oxygen Flow Rate 07/18/23 10:30 07/18/23 10:31 07/18/23 10:31 Temperature Pulse Rate 94 H 93 H Respiratory Rate Blood Pressure 117/64 Pulse Oximetry 96 96 Oxygen Delivery Method Oxygen Flow Rate 07/18/23 11:00 07/18/23 11:00 07/18/23 11:12 Temperature Pulse Rate 85 107 H Respiratory Rate Blood Pressure 119/71 Pulse Oximetry 95 97 Oxygen Delivery Method Oxygen Flow Rate 07/18/23 11:12 07/18/23 11:30 07/18/23 11:30 Temperature Pulse Rate 79 Respiratory Rate Blood Pressure 122/61 102/55 L Pulse Oximetry 97 Oxygen Delivery Method Oxygen Flow Rate 07/18/23 12:00 07/18/23 12:00 07/18/23 12:30 Temperature Pulse Rate 99 H 83 Respiratory Rate Blood Pressure 112/59 L Pulse Oximetry 99 97 Oxygen Delivery Method Oxygen Flow Rate 07/18/23 12:30 07/18/23 15:00 Temperature 98.6 F Pulse Rate 85 Respiratory Rate 17 Blood Pressure 111/57 L 113/65 Pulse Oximetry 98 Oxygen Delivery Method Oxygen Flow Rate 0 Oxygen Delivery Method Room Air Oxygen Flow Rate 0 Narrative Exam Narrative: Involuntary guarding at [facility] Well-healed laparoscopic cholecystectomy scars Objective Labs 07/18/23 10:03 07/18/23 10:03 Labs: Laboratory Results - last 24 hr 07/18/23 07/18/23 10:03 10:38 WBC 11.8 H RBC 5.39 Hgb 15.7 Hct 45.0 MCV 83.5 MCH 29.1 MCHC 34.8 RDW 13.8 Plt Count 299 Neut % (Auto) 85.5 H Lymph % (Auto) 8.3 L [place] % (Auto) 5.7 Eos % (Auto) 0.2 L Baso % (Auto) 0.3 Neut # (Auto) 08311 H Lymph # (Auto) 1000 L [place] # (Auto) 700 Eos # (Auto) 0 Baso # (Auto) 0 Sodium 139 Potassium 3.7 Chloride 102 Carbon Dioxide 22 BUN 11 Creatinine 0.56 L Estimated GFR > 60 BUN/Creatinine Ratio 19.6 Glucose 111 H Calcium 9.7 Total Bilirubin 1.1 AST 22 ALT 37 Alkaline Phosphatase 92 Total Protein 8.5 H Albumin 4.8 Globulin 3.7 Albumin/Globulin Ratio 1.3 Lipase 30 Urine RBC 1-5/hpf Urine WBC 1-5/hpf Ur Squamous Epith Cells 0-1 /hpf Urine Bacteria None seen Urine Mucus 1+ H Ur Culture Indicated? Cult not indicated Vol Urine Centrifuged 10ml (spun) Assessment & Plan Assessment and plan (1) Acute appendicitis: Qualifiers: Acute appendicitis type: with localized peritonitis Appendicitis gangrene presence: without gangrene Appendicitis perforation presence: without perforation Appendicitis abscess presence: without abscess Qualified Code(s): K35.30 - Acute appendicitis with localized peritonitis, without perforation or gangrene Status: Acute Plan I explained diagnosis of acute appendicitis to Negro. I described to approaches. One is laparoscopic appendectomy in the others continued IV antibiotics. He would like to proceed with laparoscopic appendectomy. He understands the risks and benefits. We will proceed to the OR pending OR availability.
[2023-07-18] MEDS: PIPERACILLIN/TAZO 3.375 GM in SODIUM CHLORIDE 0.9% 100 ML IV (20:04)
[2023-07-18] MEDS: HYDROCODONE/ACET 5/325 TABLET 2 TAB PO (20:27)
[2023-07-19] VITALS (9 sets, daily range): BP systolic 96–125; BP diastolic 54–82; PULSE 60–91; RESP 10–22; TEMP 36.6–37.1; O2SAT 95–98; BMI 33.4
--- NOTE | 2023-07-19 | PATH_ITS ---
[facility] Accession Number: [id number] No. of containers..01 Tissue . 01 Material submitted: . appendix - APPENDIX . 01 Diagnosis: CECUM AND APPENDIX, SEGMENTAL RESECTION: Acute appendicitis and periappendicitis. Colonic mucosa with no significant diagnostic alterations. Resection margins are viable. No malignancy identified. ERICA 07/24/2023 1057 Local . 01 Electronically signed: . Mary Castro MD, Pathologist NPI- [id number] . 01 Gross description: . The specimen is received in formalin labeled with the patient's name, , and appendix, and consists of a single vermiform appendix with an attached portion of cecum measuring 7.7 x 4.0 x 2.8 cm. The mesoappendix measures 6.5 x 2.7 x 2.8 cm. The serosal surface is diffusely zhu-bob, hemorrhagic, and roughened with an abundant amount of adherent bob fibrinous exudate noted. The margin is stapled and is inked black. The appendix is serially sectioned to reveal a pinpoint lumen containing brown fecal material. The mucosa is zhu-red and congested. The portion of cecum is opened to reveal the usual zhu plicated folds with no abnormalities seen. Customer Assistance Associate sections to include the cecal margin, one-half of the distal tip, and cross-sections of appendix are submitted in cassettes A1-A2. ([id number]) /ERICA 07/22/2023 2246 Local . 01 Pathologist provided ICD-10: K35.80 . 01 CPT . 297222 Specimen Comment: A courtesy copy of this report has been sent to [phone] Performed at: 01 [facility] [address] [id number] MD Juan Garcia MD Phone: [phone]
[2023-07-19] MEDS: LACTATED RINGERS 1,000 ML 100 ML IV ×3 (00:54→21:42)
[2023-07-19] MEDS: PIPERACILLIN/TAZO 3.375 GM in SODIUM CHLORIDE 0.9% 100 ML IV ×3 (04:26→21:55)
[2023-07-19] MEDS: HYDROCODONE/ACET 5/325 TABLET 2 TAB PO ×2 (05:37→13:36)
--- NOTE | 2023-07-19 11:42 | CM.DANOTE ---
Initial DCP Assessment Note Pt is a 23 yo male, resident of [place], arrives with abd pain and scheduled for lap appy this afternoon at 4:15p PCP: Shirin Murphy Payer: Saran Reviewed chart, pt discussed in multidisciplinary rounds this morning. Patient is indp and active at baseline and is likely to discharge home w/family after his surgery this afternoon. No barriers identified at this time to patient's safe discharge home w/family to assist; close outpatient f/u recommended. CM team will plan to follow closely in case any DC needs or concerns arise. ENRIQUE Muniz Discharge Planning/Care Management CM Discharge Assessment Start: 07/19/23 11:41 Freq: Status: Active Protocol: Document 07/19/23 11:41 EMERALD (Rec: 07/19/23 11:42 EMERALD [id number]) Discharge Planning Assessment Assigned Police Stenographer ENRIQUE Mullins DPOA/Assigned Designee Name Shannan Xiong, mother Contact Information [phone] Advance Directives? No History Provided By Patient,Medical Record Prior Living Arrangements House Household Members family Type of transporation used prior to Drives own vehicle admit Independent with ADL's Yes Is patient alert and oriented? Yes Barriers to Discharge No Discharge Plan Home Transportation Arrangement Family or friends Referrals Initiated None needed
--- NOTE | 2023-07-19 18:40 | PM.CALLCOV.1 ---
Call Coverage Note Note Date of Patient Contact: 07/19/23 Time of Patient Contact: 18:40 Narrative of Care Provided: 23-year-old man with symptoms and radiographic findings consistent with acute appendicitis. Following discussion of management options including antibiotic therapy and surgical intervention his preference is to proceed with laparoscopic appendectomy. Overview of the operation was discussed. Operative risks including but not limited to infection, hemorrhage, damage to surrounding structures, conversion to open were discussed. His questions have been answered and he is in agreement with this plan. He provides his consent to proceed.
--- NOTE | 2023-07-19 20:05 | PM.OP.1 ---
Operative Date/Time/Diagnoses Date of procedure: 07/19/23 Time of procedure: 20:05 Pre-op diagnosis: acute appendicitis Procedure & Clinicians Procedure: Laparoscopic appendectomy Same procedure as scheduled: Yes Indications: 23-year-old man with symptoms and radiographic findings consistent with acute appendicitis Surgeon: Jhony Snowden Click Yes if Unassisted: Yes Anesthesia Type: General Operative Notes Findings: Acute appendicitis without perforation Specimen(s): other (Appendix) Estimated Blood Loss (mL): 30 Procedure in detail: Patient was brought to the operating room placed supine on the table. Bilateral lower extremity compression devices were applied. Anesthesia was induced and they intubated with an endotracheal tube. They received 3.375 g of Zosyn prior to skin incision. The left arm was tucked and appropriately padded. They were prepped and draped in sterile fashion. Time-out was performed. An infraumbilical incision was made the umbilical stalk was grasped and elevated and incision was made and the abdomen was entered atraumatically. A 12 mm balloon trocar was then placed through the incision and pneumoperitoneum of 14 mm Hg was established. The scope was then inserted and the abdomen inspected, there was no evidence of injury upon entry. Two 5 mm ports were placed under direct visualization, one in the left lower quadrant and second in the lower midline. A thorough laparoscopic evaluation was performed inspecting all four quadrants. The patient was then tilted right side up. The small bowel was then swept to the upper aspect of the abdomen. The tenie were followed to the base of the cecum where the appendix was identified. The cecum was mobilized medially. The appendix was was mobilized from its lateral attachments. It was acutely inflamed but not perforated. The appendix was then grasped and its mesentery was divided using the LigaSure. The appendix was then amputated flush at the cecum using the endo-stapler blue load. The specimen was retrieved using a endoscopic retrieval bag through the 10 mm infra-umbilical port. The 5 mm ports were then removed under direct visualization. The umbilical fascial incision was closed with 0 Vicryl in a figure-eight fashion. The skin wounds were irrigated and closed with 4-0 Monocryl followed by the application of Dermabond. Sponge instrument count at the end of the operation was correct. The patient tolerated procedure well was extubated and transferred to the postoperative care unit in stable condition. Post-operative Condition: stable Disposition: Acute Care
[2023-07-19] MEDS: BUPIVACAINE 0.25% (PF) VIAL 30 ML INJ (20:22)
--- NOTE | 2023-07-19 20:23 | SUR.OPER ---
Supine on padded OR bed, head on pillow, right arm secured on padded arm boards at <90 degrees abduction, left arm padded with gel pad and tucked at side, legs uncrossed, safety belt at thigh, tape over blanket over lower legs. Gel pad under bilateral heels
[2023-07-19] MEDS: OXYCODONE IR 5 MG TABLET PO (21:26)
[2023-07-19] MEDS: KETOROLAC 30 MG/ML VIAL IV (21:26)
--- NOTE | 2023-07-19 21:42 | SUR.PHASEI ---
Report called to
--- NOTE | 2023-07-19 21:55 | SUR.PHASEI ---
Patient transferred to the floor with his belongings. Report given to Dean. Condition stable. Abd sites SPRAYER OPERATOR, CDI.
[2023-07-20 04:00] VITALS: BP 99/56; PULSE 89; RESP 20; TEMP 36.9; O2SAT 96
[2023-07-20] MEDS: PIPERACILLIN/TAZO 3.375 GM in SODIUM CHLORIDE 0.9% 100 ML IV (04:27)
[2023-07-20] MEDS: HYDROCODONE/ACET 5/325 TABLET 2 TAB PO ×2 (05:03)
[2023-07-20 08:00] VITALS: BP 99/58; PULSE 80; RESP 16; TEMP 36.9; O2SAT 95
--- NOTE | 2023-07-20 10:38 | PC.NURSE ---
Day shift: Discharge information gone over with patient and patient's mother. All questions answered, patient stated understanding. PIV removed prior to discharge. All belongings with patient. PCT Isidoro escorted patient to exit via wheelchair, where patient's mom plans to drive him home.
== END 2023-07-20 10:40 | disposition home or self-care (01) ==
LOC: ED 10:50 → AC 13:03 → ICU 13:53
PROVIDERS: Surgery; Admitting Provider Surgery; Emergency Provider Emergency Medicine; Family Provider Family Medicine; PCP Family Medicine; Visit Provider Surgery
PROC: 0DTJ4ZZ Resection of Appendix, Percutaneous Endoscopic Approach (ICD-10-PCS; CPT 44970; principal; 2023-07-19 19:00)
DX: K35.80 Unspecified acute appendicitis (principal)
CPT/HCPCS: 44970; 36415; 74177; 80053; 81003; 81015; 83690; 85025; 96361; 96365; 96366; 96375; 96376; 99221; 99284; G0378; J0330; J1100; J1170; J1885; J2405; J2543; J2704; J3010; J3490; Q9967